=== PATIENT | female | born 1985 | race Caucasian/White ===

== ENCOUNTER 2016-10-25 15:41 | Emergency (ER) | payer OTHER ==
--- NOTE | ~2016-10-25 | CR127 ---
[facility] A Service of [facility] & [facility] RADIOLOGY TEXT RESULTS PATIENT: SIDDHARTHA ALONZO LOCATION: CFTX : 87 UNIT #: [id number] AGE: [address]: Masoud Lawson SEX: F ORDER DR: [id number] [facility] [address] [place], [place] [address] [id number] MR#: [id number] #: [id number] NAME: SIDDHARTHA ALONZO. : 1985 SEX: F STUDY DATE/TIME: 10/25/2016 16:27 UNIT: [facility] ROOM: STUDY DESCRIPTION: CR Foot Complete Min 3 View Rt Attending Physician: Masoud Lawson Ordering Physician: Ed Doctor [id number] [facility] Primary Care Physician: Primary Care Physician No MEDICAL IMAGING REPORT This report is preliminary unless electronic signature is present EXAM Right foot 3 views HISTORY SUPPLIED Right foot pain, swelling along dorsum of the foot for 2 days. FINDINGS 3 views of the right foot are submitted. Bony elements are intact. Joint space and articular surface are preserved. No fractures are identified. There is a small calcaneal spur and there is small ossification at the Achilles insertion. CONCLUSION 1. Negative right foot. Dictated by... De Eason M.D. THIS IS AN ELECTRONICALLY VERIFIED REPORT De Eason M.D. at 10/27/2016 12:00 PM PRADIP/nixon TD: 10/25/2016 20:58 JOB #: [id number] MEDICAL IMAGING REPORT Page 1 of 1 COPY
[~2016-10-25 15:41] MED LIST: ALBUTEROL17 GM INH; BENTYL20 MG PO; DOXYCYCLINE PO; HYDROCODON-ACE1 EAC9 PO; LEVAQUIN750 MG PO; LORTAB 5/500 TA1 TA1 PO; NO MEDICATIONS; PERCOCET5/325 PO; PHENERGAN25 MG PO; ULTRAM PO; VOLTAREN75 MG PO; ZITHROMAX PO
== END 2016-10-25 17:14 | disposition home or self-care (01) ==
LOC: CFTX 15:41
DX: S90.31XA Contusion of right foot, initial encounter (principal); Z90.49 Acquired absence of other specified parts of digestive tract; Z88.1 Allergy status to other antibiotic agents; F17.210 Nicotine dependence, cigarettes, uncomplicated; W20.8XXA Other cause of strike by thrown, projected or falling object, initial encounter
CPT/HCPCS: 29405; 73630; 99283